=== PATIENT | male | born 1945 | race Caucasian/White ===

== ENCOUNTER → 2017-01-31 | Outpatient (CLI) | payer MEDICARE, OTHER ==
[~2017-01-31] MED LIST: ASPIRIN 32325 MG/TAB PO; ASPIRIN E.C. 8181 MG PO; CALCIUM CARBON650 M2 PO; CRESTOR 10MG10 MG PO; DUO-KAPS1 CAP PO; ELIQUIS 5MG PO; FISH OIL1000 MG PO; HCTZ 25MG TAB25 MG PO; LOPRESSOR 550 MG/TAB PO; LOPRESSOR100 MG PO; MULTAQ400 MG PO; NASONEX SPRAY17 GM NS; NITROSTAT0.4 MG/TAB SL; NO HOME MEDICATIONS; NORVASC 10MG10 MG PO; PLAVIX 75MG TAB75 MG PO; PRINIVIL5 MG PO; SYNTHROID0.05 MG/TA PO; ZESTRIL40 MG PO; ZOCOR 40MG40 MG PO
[2017-01-31 10:25] LABS: CALCIUM 9.9 mg/dL (8.4-10.2); CREATININE, serum 1.09 mg/dL (0.66-1.25); POTASSIUM 4.2 mmol/L (3.4-5.0)
== END ==
LOC: COL.LAB 09:26
PROVIDERS: Physician Assistant
DX: E87.1 Hypo-osmolality and hyponatremia (principal)

== ENCOUNTER 2017-11-08 12:23 | Day surgery (SDC) | payer MEDICARE, OTHER ==
[~2017-11-08] VITALS: Ht 175.3 cm; Wt 99.6 kg
[~2017-11-08 12:23] MED LIST changes: +ASPI325T6 PO; +CENTRUM SILVER1 TAB PO; +COREG12.5 MG PO; +COUMADIN 5MG5 MG/TAB PO; +EPA FISH OIL1000 MG PO; +LIPITOR20 MG PO; +NORVASC 5MG5 MG/TAB; +ULTRAM 50MG TAB50 MG PO; +ZESTRIL 5MG5 MG PO
[2017-11-08 12:39] VITALS: BP 120/78; PULSE 78; TEMP 98.2
[2017-11-08] MEDS ORDERED: ASPIRIN 32325 MG/TAB PO (12:43)
[2017-11-08 13:30] VITALS: BP 108/70; PULSE 76; TEMP 97.6
[2017-11-08 13:45] VITALS: BP 116/69; PULSE 66
[2017-11-08 14:00] VITALS: BP 111/70; PULSE 66
[2017-11-08 14:15] VITALS: BP 112/67; PULSE 63
[2017-11-08 14:30] VITALS: BP 111/73; PULSE 64
== END 2017-11-08 14:53 | disposition home or self-care (01) ==
LOC: SDCO 12:23
DX: K83.8 Other specified diseases of biliary tract (principal); J44.9 Chronic obstructive pulmonary disease, unspecified; I10 Essential (primary) hypertension; I25.10 Atherosclerotic heart disease of native coronary artery without angina pectoris; I25.2 Old myocardial infarction; I48.91 Unspecified atrial fibrillation; G47.33 Obstructive sleep apnea (adult) (pediatric); M19.90 Unspecified osteoarthritis, unspecified site; E03.9 Hypothyroidism, unspecified; D64.9 Anemia, unspecified; J96.90 Respiratory failure, unspecified, unspecified whether with hypoxia or hypercapnia; Z95.810 Presence of automatic (implantable) cardiac defibrillator; Z95.5 Presence of coronary angioplasty implant and graft; Z90.49 Acquired absence of other specified parts of digestive tract; Z79.01 Long term (current) use of anticoagulants; Z99.81 Dependence on supplemental oxygen; Z87.891 Personal history of nicotine dependence
CPT/HCPCS: C1769; J2704; J7030

== ENCOUNTER 2018-10-23 05:16 | Emergency (ER) | payer MEDICARE, OTHER ==
[~2018-10-23] VITALS: Ht 175.3 cm; Wt 111.4 kg
[2018-10-23 06:42] LABS: BASO # 0.1 (0.0-0.2); BASO % 0.6 % (0.0-2.0); EOS # 0.3 (0.0-0.7); EOS % 3.8 % (0-4.0); GRAN % 63.8 % (42.2-75.2); HEMATOCRIT 50.9 % (42.0-52.0); HEMOGLOBIN 17.7 g/dl (13.5-18.0); LYMPH # 1.7 (1.2-3.4); LYMPH % 21.4 % (20.0-51.0); MEAN CELL VOLUME 90 fl (80.0-100.0); MEAN CORPUSCULAR HEMOGLOBIN 31 pg (27.0-31.0); MEAN CORPUSCULAR HGB CONC 35 g/dl (33.0-37.0); MEAN PLATELET VOLUME 10.4 fl (7.4-10.4); MONO # 0.8 (0.1-0.6); PLATELET COUNT 138 K/mm3 (130-400); RED BLOOD COUNT 5.65 M/mm3 (4.20-5.60); REDCELL DISTRIBUTION WIDTH-CV 12.9 % (11.5-14.5)
[2018-10-23 06:45] LABS: PROTHROMBIN TIME 12.1 SECONDS (9.7-12.8)
[2018-10-23 06:50] LABS: ALANINE AMINOTRANSFERASE 42 U/L (21-72); ALBUMIN 4.8 gm/dL (3.5-5.0); ALKALINE PHOSPHATASE 74 U/L (50-136); ANION GAP 12 mmol/L (7-16); AST,SGOT 42 U/L (15-37); BILIRUBIN,TOTAL 0.8 mg/dL (0.0-1.0); BLOOD UREA NITROGEN 13 mg/dL (9-20); CALCIUM 9.8 mg/dL (8.4-10.2); CARBON DIOXIDE 25 mmol/L (22-30); CHLORIDE 104 mmol/L (98-107); CREATININE, serum 0.79 (0.66-1.25); GLUCOSE 116 mg/dL (74-106); POTASSIUM 4.5 mmol/L (3.4-5.0); SODIUM 140 mmol/L (137-145); TOTAL PROTEIN 7.6 gm/dL (6.4-8.2)
[2018-10-23 07:06] LABS: TROPONIN-I < 0.012 ng/mL (0.000-0.035)
[2018-10-23 08:41] VITALS: BP 141/71; PULSE 66; TEMP 97.8
== END 2018-10-23 09:05 | disposition home or self-care (01) ==
LOC: COL.ER 05:16
PROVIDERS: Emergency Medicine
DX: R07.9 Chest pain, unspecified (principal); I25.10 Atherosclerotic heart disease of native coronary artery without angina pectoris; I48.91 Unspecified atrial fibrillation; I10 Essential (primary) hypertension; E03.9 Hypothyroidism, unspecified; Z95.5 Presence of coronary angioplasty implant and graft; Z95.810 Presence of automatic (implantable) cardiac defibrillator; Z87.891 Personal history of nicotine dependence; Z95.2 Presence of prosthetic heart valve; Z79.82 Long term (current) use of aspirin

== ENCOUNTER 2020-01-18 05:50 | Emergency (ER) | payer MEDICARE, OTHER ==
[~2020-01-18] VITALS: Ht 175.3 cm; Wt 110.5 kg
[2020-01-18 05:56] VITALS: TEMP 98.1
[2020-01-18 06:09] LABS: BASO # 0.1 (0.0-0.2); BASO % 0.6 % (0.0-2.0); EOS # 0.4 (0.0-0.7); EOS % 3.7 % (0-4.0); GRAN # 7.1 (1.4-6.5); GRAN % 67.2 % (42.2-75.2); HEMATOCRIT 49.6 % (42.0-52.0); HEMOGLOBIN 17.5 g/dl (13.5-18.0); LYMPH % 19.3 % (20.0-51.0); MEAN CELL VOLUME 88 fl (80.0-100.0); MEAN CORPUSCULAR HEMOGLOBIN 31 pg (27.0-31.0); MEAN CORPUSCULAR HGB CONC 35 g/dl (33.0-37.0); MONO # 0.9 (0.1-0.6); MONO % 8.9 % (1.7-9.3); PLATELET COUNT 142 K/mm3 (130-400); RED BLOOD COUNT 5.63 M/mm3 (4.20-5.60); REDCELL DISTRIBUTION WIDTH-CV 12.6 % (11.5-14.5)
[2020-01-18 06:17] LABS: INR 1.2 (0.8-3.0)
[2020-01-18 06:25] LABS: ALANINE AMINOTRANSFERASE 35 U/L (4-49); ALBUMIN 4.7 gm/dL (3.5-5.0); ALKALINE PHOSPHATASE 73 U/L (50-136); ANION GAP 12 mmol/L (7-16); AST,SGOT 31 U/L (15-37); BILIRUBIN,TOTAL 0.9 mg/dL (0.0-1.0); BLOOD UREA NITROGEN 16 mg/dL (9-20); CALCIUM 9.7 mg/dL (8.4-10.2); CARBON DIOXIDE 25 mmol/L (22-30); CHLORIDE 101 mmol/L (98-107); GLUCOSE 129 mg/dL (74-106); POTASSIUM 4.1 mmol/L (3.4-5.0); SODIUM 137 mmol/L (137-145); TOTAL PROTEIN 7.2 gm/dL (6.4-8.2)
[2020-01-18 06:28] LABS: COLLECTION METHOD CLEAN CATCH
[2020-01-18 06:33] LABS: PH 5 (5-8); SQUAMOUS EPITHELIAL None Seen /hpf; URINE APPEARANCE Clear; URINE BACTERIA None Seen /hpf; URINE BILIRUBIN Negative (NEGATIVE); URINE BLOOD 1+ (NEGATIVE); URINE COLOR Yellow; URINE GLUCOSE Negative (NEGATIVE); URINE KETONE Negative (NEGATIVE); URINE LEUKOCYTE ESTERASE Negative (NEGATIVE); URINE NITRATE Negative (NEGATIVE); URINE PROTEIN(semi-quant) Negative (NEGATIVE); URINE RBC 0-2 /hpf; URINE UROBILINOGEN Negative (NEGATIVE)
[2020-01-18 06:41] LABS: TROPONIN-I < 0.012 ng/mL (0.000-0.035)
[2020-01-18 10:18] VITALS: BP 177/96; PULSE 66
== END 2020-01-18 10:25 | disposition home or self-care (01) ==
LOC: COL.ER 05:50
PROVIDERS: Emergency Medicine
DX: R07.9 Chest pain, unspecified (principal); I10 Essential (primary) hypertension; E78.5 Hyperlipidemia, unspecified; E03.9 Hypothyroidism, unspecified; I25.2 Old myocardial infarction; I25.10 Atherosclerotic heart disease of native coronary artery without angina pectoris; Z95.4 Presence of other heart-valve replacement; Z95.5 Presence of coronary angioplasty implant and graft; Z95.810 Presence of automatic (implantable) cardiac defibrillator; Z87.891 Personal history of nicotine dependence; Z79.82 Long term (current) use of aspirin

== ENCOUNTER 2023-09-28 02:48 | Observation (INO) | payer MEDICARE, OTHER ==
[~2023-09-28] VITALS: Ht 175.3 cm; Wt 107.0 kg
[~2023-09-28 02:48] MED LIST changes: +BETAPACE 80MG80 MG PO; +CARAFATE 1GM1 G PO; +IMDUR 60MG60 MG/TAB PO; +PRILOSEC 20MG20 MG PO
[2023-09-28 03:02] LABS: BASO # 0.1 K/mm3 (0.0-0.2); BASO % 0.7 % (0.0-2.0); EOS # 0.4 K/mm3 (0.0-0.7); EOS % 3.9 % (0.0-4.0); GRAN # 5.2 K/mm3 (1.4-6.5); GRAN % 58.6 % (42.2-75.2); HEMATOCRIT 51.3 % (42.0-52.0); HEMOGLOBIN 17.7 g/dl (13.5-18.0); LYMPH # 2.4 K/mm3 (1.2-3.4); LYMPH % 27.2 % (20.0-51.0); MEAN CELL VOLUME 91 fl (80.0-100.0); MEAN CORPUSCULAR HEMOGLOBIN 31 pg (27-31); MEAN CORPUSCULAR HGB CONC 35 g/dl (33.0-37.0); MEAN PLATELET VOLUME 9.8 fl (7.4-10.4); MONO # 0.8 K/mm3 (0.1-0.6); MONO % 9.4 % (1.7-9.3); PLATELET COUNT 145 K/mm3 (130-400); RED BLOOD COUNT 5.67 M/mm3 (4.20-5.60); REDCELL DISTRIBUTION WIDTH-CV 12.6 % (11.5-14.5)
[2023-09-28 03:08] LABS: INR 1.2 (0.8-3.0); PROTHROMBIN TIME 12.8 SECONDS (9.7-12.8)
[2023-09-28 03:18] LABS: ALANINE AMINOTRANSFERASE 57 U/L (0-55); ALKALINE PHOSPHATASE 60 U/L (40-150); ANION GAP 10 mmol/L (7-16); AST,SGOT 44 U/L (5-34); BILIRUBIN,TOTAL 0.8 mg/dL (0.2-1.2); BLOOD UREA NITROGEN 9 mg/dL (8-26); CALCIUM 9.8 mg/dL (8.4-10.2); CHLORIDE 106 mEq/L (98-107); CREATININE, serum 0.86 mg/dL (0.72-1.25); GLUCOSE 122 mg/dL (70-99); POTASSIUM 4.2 mEq/L (3.5-4.5); SODIUM 139 mEq/L (136-145); TOTAL PROTEIN 6.9 g/dl (6.2-8.1)
[2023-09-28 03:24] LABS: TROPONIN-I < 0.010 ng/mL (0.00-0.033)
[2023-09-28] MEDS ORDERED: Mag/Al Hydrox/Simeth Susp 30 ML CUP PO PRN (04:45)
[2023-09-28] MEDS ORDERED: Morphine 4 MG/ML VIAL IV PRN (04:45)
[2023-09-28] MEDS ORDERED: NS 1,000 ML IV SCH (04:45)
[2023-09-28] MEDS ORDERED: Promethazine 25 MG Rectal SUPP RC PRN (04:45)
[2023-09-28] MEDS ORDERED: Magnes Hydrox (MOM) 80 MG/ML 30 ML CUP PO PRN (04:45)
[2023-09-28] MEDS ORDERED: Naloxone 0.4 MG/ML VIAL IV PRN (04:45)
--- NOTE | 2023-09-28 05:45 | NUR ---
pt admitted to room 347 from ED per cart, ambulated to bed with SBA. IVF infusing per PIV in LAC, telemetry in place. pt on RA, VSS. oriented to room, floor and POC. med rec and admission intake completed. Yajaira Parker APRN notified of pts arrival.
[2023-09-28 05:50] VITALS: BP 155/67; PULSE 59; TEMP 97.8
[2023-09-28] MEDS ORDERED: MICRONASE2.5 MG PO (06:18)
[2023-09-28] MEDS ORDERED: PRINIVIL10 MG PO (06:19)
[2023-09-28] MEDS ORDERED: traMADol 50 MG TAB PO PRN (06:30)
--- NOTE | 2023-09-28 06:53 | NUR ---
Report received. Pt awake, laying down in bed. Pt has IV fluids running at 30 ml/hr. Pt does not complain of pain at this time. Pt independent in room. Call light within reach. No concerns at this time.
[2023-09-28] MEDS ORDERED: Isosorbide Mononitrate CR (24-HR) 60 MG TAB PO SCH (07:00)
[2023-09-28 07:04] LABS: CHOLESTEROL 148 mg/dL (0-199); CHOLESTEROL RISK RATIO 4.9; HDL CHOLESTEROL 30 mg/dL (40-60); LDL CHOLESTEROL 90 mg/dL
[2023-09-28] MEDS ORDERED: Dextrose (Glucose) 15 GM (4 x 3.75 GM) Chewable TABLET PACK PO PRN (07:30)
[2023-09-28] MEDS ORDERED: Glucagon 1 MG VIAL IM PRN (07:30)
[2023-09-28] MEDS ORDERED: Dextrose 50% Water 25 GM/50 ML SYRINGE IV PRN (07:30)
[2023-09-28 07:35] VITALS: BP 120/74; PULSE 70; TEMP 98.4
[2023-09-28] MEDS ORDERED: Insulin Lispro (HumaLOG) SQ SCH (08:00)
[2023-09-28] MEDS ORDERED: Omega-3 Fatty Acid Esters (OTC) 1,000 MG CAP PO SCH (09:00)
[2023-09-28] MEDS ORDERED: Docusate Sodium 100 MG CAP PO SCH (09:00)
[2023-09-28] MEDS ORDERED: Lisinopril 10 MG TAB PO SCH (09:00)
[2023-09-28] MEDS ORDERED: Famotidine 20 MG TAB PO SCH (09:00)
[2023-09-28] MEDS ORDERED: amLODIPine 5 MG TAB PO SCH (09:00)
--- NOTE | 2023-09-28 10:24 | NUR ---
0824 - Pt awake, sitting up in bed at time of morning assessment and med pass. Pt does not complain of any pain at this time. Pt's daughter called asking for an update, permission given by pt to talk to her at this time. Pt independent in room. Call light within reach. No concerns at this time.
--- NOTE | 2023-09-28 10:51 | NUR ---
0900 - Attempted to call Dr Cage for cardiology consult, no answer. This nurse left a voicemail.
--- NOTE | 2023-09-28 11:20 | NUR ---
Called Dr Humphrey updating that this nurse attempted to call Dr Cgae with cardiology and was unsuccessful. Voicemail was for Dr Cage.
[2023-09-28 11:45] VITALS: BP 103/64; PULSE 60; TEMP 98.4
--- NOTE | 2023-09-28 12:12 | NUR ---
Data: Patient declined spiritual care visit offered during Medical Assistant Dermatology rounds. Patient stated he wanted to rest. Assessment: None. Patient declined. Plan of Care: Medical Assistant Dermatology adjusted the lighting for Patient to darken the room. Chaplains will remain available as needed/requested while Patient is admitted to this hospital.
--- NOTE | 2023-09-28 12:27 | NUR ---
SW met with patient to complete initial assessment for discharge planning. Patient sitting on side of bed eating lunch. Patient verified that he lives alone in [place], [place]. He lists two daughters Bhavna Brizuela ([phone]) and Nya Patino ([phone]) as his contacts. He denies having a DPOA completed and declined to complete one at this time. Patient sees Dr. Karolina Allen as his PCP and uses [facility] pharmacy. Patient denies having any DME. Patient plans to return home at discharge. Discharge plan: Home
[2023-09-28] MEDS ORDERED: NITROSTAT0.4 MG/TAB SL (13:07)
[2023-09-28 13:12] VITALS: BP_SYST 103
[2023-09-28] MEDS ORDERED: ISOSORBIDE MON120 MG PO (13:14)
--- NOTE | 2023-09-28 15:03 | NUR ---
1445 - Pt discharged. Family and staff accompanied pt out of hospital. IV discontinued. Pt discharging to home.
[2023-09-28] MEDS ORDERED: Atorvastatin 20 MG TAB PO SCH (21:00)
[2023-09-28] MEDS ORDERED: Melatonin 3 MG TAB PO PRN (21:00)
== END 2023-09-28 14:45 | disposition home or self-care (01) ==
LOC: COL.ER 02:48 → SURG 04:43
PROVIDERS: Emergency Medicine; Nurse Practitioner Family; ADMIT Internal Medicine
DX: R07.9 Chest pain, unspecified (principal); I25.10 Atherosclerotic heart disease of native coronary artery without angina pectoris; I25.2 Old myocardial infarction; I10 Essential (primary) hypertension; E78.5 Hyperlipidemia, unspecified; E03.9 Hypothyroidism, unspecified; I48.91 Unspecified atrial fibrillation; E11.9 Type 2 diabetes mellitus without complications; Z87.891 Personal history of nicotine dependence; Z95.810 Presence of automatic (implantable) cardiac defibrillator; Z95.2 Presence of prosthetic heart valve; Z95.5 Presence of coronary angioplasty implant and graft; Z79.890 Hormone replacement therapy; Z79.899 Other long term (current) drug therapy; Z95.1 Presence of aortocoronary bypass graft
CPT/HCPCS: G0378; J1650; J7030